=== PATIENT | female | born 1975 | race Caucasian/White ===

== ENCOUNTER 2020-07-19 09:50 | Inpatient (IN) | payer OTHER ==
[~2020-07-19] VITALS: Ht 160 cm; Wt 44.9 kg
[2020-07-24] MEDS ORDERED: HYOSCYAMINE0.125 M1 SL (12:24)
[2020-07-24] MEDS ORDERED: OXYC1TAB9 PO (12:25)
[2020-08-13] MEDS ORDERED: MAXIMUM D3325 MCG PO (13:38)
[2020-08-13] MEDS ORDERED: VITAMIN C500 M6 PO (13:50)
[2020-08-13] MEDS ORDERED: COQ-1030 MG PO (13:51)
[2020-08-13] MEDS ORDERED: ZINC50 M1 PO (13:51)
== END 2020-07-24 14:01 | disposition home or self-care (01) | DRG 330 ==
LOC: ER 09:50 → MEDI 07-20 14:50 → SURH 07-21 15:52
PROVIDERS: Obstetrics & Gynecology; Surgery; ADMIT Internal Medicine; ATTEND Internal Medicine
PROC: 0DJD8ZZ Inspection of Lower Intestinal Tract, Via Natural or Artificial Opening Endoscopic (ICD-10-PCS; 2020-07-21)
PROC: 0DTM0ZZ Resection of Descending Colon, Open Approach (ICD-10-PCS; principal; 2020-07-21 12:00)
PROC: 0UB00ZZ Excision of Right Ovary, Open Approach (ICD-10-PCS; 2020-07-21 12:00)
PROC: 07BD0ZX Excision of Aortic Lymphatic, Open Approach, Diagnostic (ICD-10-PCS; 2020-07-21 12:00)
DX: C18.6 Malignant neoplasm of descending colon (principal); C79.61 Secondary malignant neoplasm of right ovary; R59.1 Generalized enlarged lymph nodes; N83.291 Other ovarian cyst, right side; Z20.828 Contact with and (suspected) exposure to other viral communicable diseases
CPT/HCPCS: 72196

== ENCOUNTER 2020-08-20 07:54 | Inpatient (IN) | payer OTHER ==
[~2020-08-20] VITALS: Ht 160 cm; Wt 90.0 kg
[~2020-08-20 07:54] MED LIST: COQ-1030 MG PO; HYOSCYAMINE0.125 M1 SL; MAXIMUM D3325 MCG PO; OXYC1TAB9 PO; VITAMIN C500 M6 PO; ZINC50 M1 PO
[2020-08-24] MEDS ORDERED: KETO10TA2 PO (09:04)
[2020-08-24] MEDS ORDERED: ULTRAM50 MG PO (09:05)
== END 2020-08-24 12:53 | disposition home or self-care (01) | DRG 357 ==
LOC: CIR.AMB 07:54 → O/R 15:27 → SURG 15:27
PROVIDERS: ADMIT Surgery; ATTEND Surgery
PROC: 05H633Z Insertion of Infusion Device into Left Subclavian Vein, Percutaneous Approach (ICD-10-PCS; 2020-08-20)
PROC: B517YZA Fluoroscopy of Left Subclavian Vein using Other Contrast, Guidance (ICD-10-PCS; 2020-08-20)
PROC: 0JH60WZ Insertion of Totally Implantable Vascular Access Device into Chest Subcutaneous Tissue and Fascia, Open Approach (ICD-10-PCS; principal; 2020-08-20 13:30)
PROC: 0W9B30Z Drainage of Left Pleural Cavity with Drainage Device, Percutaneous Approach (ICD-10-PCS; 2020-08-22)
DX: C18.6 Malignant neoplasm of descending colon (principal); C79.60 Secondary malignant neoplasm of unspecified ovary; J95.811 Postprocedural pneumothorax; R59.0 Localized enlarged lymph nodes

== ENCOUNTER 2021-12-21 11:19 | Inpatient (IN) | payer OTHER ==
[~2021-12-21] VITALS: Ht 160 cm; Wt 50.3 kg
[~2021-12-21 11:19] MED LIST changes: +KETO10TA2 PO; +ULTRAM50 MG PO
[2021-12-21] MEDS ORDERED: CAPECITABINE500 MG PO (12:08)
[2021-12-27] MEDS ORDERED: ULTRAM50 MG PO (13:52)
[2021-12-27] MEDS ORDERED: LEVSIN/SL0.125 MG SL (13:52)
[2021-12-27] MEDS ORDERED: INTEGRA F CAPS1 EACH PO (13:53)
== END 2021-12-27 15:46 | disposition home or self-care (01) | DRG 336 ==
LOC: ER 11:19 → SURH 14:52
PROVIDERS: ADMIT Surgery; ATTEND Surgery
PROC: 0DNW0ZZ Release Peritoneum, Open Approach (ICD-10-PCS; principal; 2021-12-21)
PROC: 0DBW0ZZ Excision of Peritoneum, Open Approach (ICD-10-PCS; 2021-12-21)
PROC: 0UT90ZZ Resection of Uterus, Open Approach (ICD-10-PCS; 2021-12-21)
PROC: 07TC0ZZ Resection of Pelvis Lymphatic, Open Approach (ICD-10-PCS; 2021-12-21)
PROC: 0TTB0ZZ Resection of Bladder, Open Approach (ICD-10-PCS; 2021-12-21)
PROC: 02HV33Z Insertion of Infusion Device into Superior Vena Cava, Percutaneous Approach (ICD-10-PCS; 2021-12-21)
DX: C18.8 Malignant neoplasm of overlapping sites of colon (principal); C78.6 Secondary malignant neoplasm of retroperitoneum and peritoneum; C79.82 Secondary malignant neoplasm of genital organs; C79.89 Secondary malignant neoplasm of other specified sites; C79.11 Secondary malignant neoplasm of bladder; C79.62 Secondary malignant neoplasm of left ovary; Z20.822 Contact with and (suspected) exposure to COVID-19; N72 Inflammatory disease of cervix uteri